=== PATIENT | female | born 1965 | race Caucasian/White ===

== ENCOUNTER 2025-02-12 13:29 | Emergency (ER) | payer OTHER ==
[~2025-02-12] VITALS: Ht 165.1 cm; Wt 86.2 kg
[2025-02-12] MEDS ORDERED: SYNTHROID175 MCG PO (15:00)
[2025-02-12] MEDS ORDERED: ATORVASTATIN CA10 MG PO (15:00)
[2025-02-12] MEDS ORDERED: LOSARTAN POTASS50 MG PO (15:00)
[2025-02-12] MEDS ORDERED: ACETAMINOPHEN 500 MG GEL..CAP PO ONE ×2 (15:47→16:00)
[2025-02-12] MEDS ORDERED: 8 HOUR650 MG PO (18:16)
== END 2025-02-12 18:30 | disposition home or self-care (01) ==
LOC: ER 13:29
DX: S93.492A Sprain of other ligament of left ankle, initial encounter (principal); W18.39XA Other fall on same level, initial encounter; Y93.89 Activity, other specified; Y92.018 Other place in single-family (private) house as the place of occurrence of the external cause; Z88.0 Allergy status to penicillin; E78.00 Pure hypercholesterolemia, unspecified; E03.8 Other specified hypothyroidism; I10 Essential (primary) hypertension; I67.1 Cerebral aneurysm, nonruptured; M77.32 Calcaneal spur, left foot